=== PATIENT | female | born 1985 | race Caucasian/White ===

== ENCOUNTER 2018-06-07 17:13 | Inpatient (IN) | payer SELFPAY, BC, OTHER ==
[2018-06-07] MEDS: LACTATED RINGER'S 1,000 ML IV (18:10)
[2018-06-07] MEDS: ONDANSETRON 4 MG INJ IV (18:10)
[2018-06-07] MEDS: SOD CHLORIDE 0.9% 1,000 ML IV (18:10)
[2018-06-07 18:13] LABS: ABNORMAL IP MESSAGE 1; HEMATOCRIT 15.7 % (37.0-47.0); MEAN CORPUSCULAR HEMOGLOBIN 31.3 pg (29.0-33.0); MEAN CORPUSCULAR HGB CONC 33.1 g/dl (32.0-37.0); MEAN CORPUSCULAR VOLUME 94.6 fl (82.0-101.0); MEAN PLATELET VOLUME 11.8 fl (7.4-10.4); PLATELET COUNT 142 10^3/UL (140-415); RED BLOOD COUNT 1.66 10^6/ul (4.20-5.40); RED CELL DISTRIBUTION WIDTH 15.1 % (11.5-14.5)
[2018-06-07 18:25] LABS: ADD MAN DIFF? YES; HEMOGLOBIN 5.2 g/dl (12.0-16.0); POSITIVE DIFF @See below
[2018-06-07 18:32] LABS: ALANINE AMINOTRANSFERASE 53 IU/L (13-69); ALBUMIN/GLOBULIN RATIO 1.11; ALKALINE PHOSPHATASE 71 IU/L (42-121); ANION GAP 13 (8-16); ASPARTATE AMINO TRANSFERASE 81 IU/L (15-46); BILIRUBIN,INDIRECT 3.2 mg/dl (0-1.1); BILIRUBIN,TOTAL 3.2 mg/dl (0.2-1.3); BLOOD UREA NITROGEN 33 mg/dl (7-20); CALCIUM 8.8 mg/dl (8.4-10.2); CARBON DIOXIDE 24 mmol/L (21-31); CHLORIDE 99 mmol/L (97-110); CREATININE 0.63 mg/dl (0.44-1.00); GLUCOSE 192 mg/dl (70-220); LIPASE 173 U/L (23-300); POTASSIUM 3.9 mmol/L (3.5-5.1); SODIUM 132 mmol/L (135-144); TOTAL PROTEIN 5.7 g/dl (6.1-8.1)
[2018-06-07 18:35] LABS: ADD UMIC YES; UR ASCORBIC ACID 20 mg/dL (NEGATIVE); UR BACTERIA FEW /HPF (NONE SEEN); UR BILIRUBIN (Dip) NEGATIVE (NEGATIVE); UR BLOOD (Dip) NEGATIVE (NEGATIVE); UR CLARITY CLOUDY (CLEAR); UR COLOR AMBER (YELLOW); UR GLUCOSE (Dip) 1+ mg/dL (NEGATIVE); UR KETONES (Dip) NEGATIVE (NEGATIVE); UR LEUKOCYTE ESTERASE (Dip) TRACE Leu/ul (NEGATIVE); UR MUCUS MODERATE /HPF (NONE SEEN); UR NITRITE (Dip) NEGATIVE (NEGATIVE); UR RBC 2 /HPF (0-5); UR SPECIFIC GRAVITY (Dip) 1.021 (1.003-1.030); UR SQUAMOUS EPITHELIAL CELL MODERATE /HPF (FEW); UR TOTAL PROTEIN (Dip) NEGATIVE (NEGATIVE); UR UROBILINOGEN (Dip) 1+ mg/dL (NEGATIVE); UR WBC 3 /HPF (0-5)
[2018-06-07 18:59] LABS: BAND NEUTROPHILS #M 0.3 10^3/ul (0.0-0.6); BAND NEUTROPHILS % (M) 3 % (0-4); EOSINOPHILS % (M) 1 % (0-7); GIANT THROMBO% (M) 3 % (0-0); LYMPHOCYTES #M 2.1 10^3/ul (0.8-2.9); LYMPHOCYTES % (M) 18 % (15-51); MONOCYTE #M 0.3 10^3/ul (0.3-0.9); MONOCYTES % (M) 3 % (0-11); PLATELET ESTIMATE NORMAL; SEGMENTED NEUTROPHILS (M) % 75 % (39-77); SMUDGE%M 4 % (0-0)
[2018-06-07 19:35] LABS: RETICULOCYTE COUNT # 0.103 X10^6 (0.020-0.110)
[2018-06-07 19:35] LABS: RETICULOCYTE RBC 1.47
[2018-06-07 19:54] LABS: LACTATE DEHYDROGENASE 567 IU/L (313-618)
[2018-06-07 19:54] LABS: IRON 38 ug/dl (35-150)
[2018-06-07] MEDS: CEFTRIAXONE 1 GM/50 ML (PMX) 50 ML IVPB (20:00)
[2018-06-07 20:03] LABS: % IRON SATURATION 12 % SAT (22-52); TOTAL IRON BINDING CAPACITY 308 ug/dl (241-421)
[2018-06-07 20:06] LABS: HAAIG REFLEX REFLEX FILED
[2018-06-07] MEDS ORDERED: ONDANSETRON 4 MG INJ IV (20:30)
[2018-06-07] MEDS ORDERED: BISACODYL (EC) 5 MG TAB PO (20:30)
[2018-06-07] MEDS ORDERED: DOCUSATE SODIUM 100 MG CAP PO (20:30)
[2018-06-07] MEDS ORDERED: NACL 0.9% 3 ML SYG IV (20:30)
[2018-06-07] MEDS ORDERED: ACETAMINOPHEN 325 MG TAB PO (20:30)
[2018-06-07 20:31] LABS: FERRITIN 14.4 ng/ml (6.2-137.0)
[2018-06-07 20:47] LABS: HEPATITIS B SURFACE ANTIGEN NEGATIVE (NEGATIVE)
[2018-06-07 20:59] LABS: OCCULT BLOOD STOOL POSITIVE (NEGATIVE)
[2018-06-07 21:05] LABS: HEPATITIS B CORE ANTIBODY NEGATIVE (NEGATIVE); HEPATITIS C VIRAL ANTIBODY NEGATIVE (NEGATIVE)
[2018-06-07] MEDS ORDERED: CEFTRIAXONE 1 GM INJ IM (21:30)
[2018-06-07] MEDS ORDERED: METOCLOPRAMIDE 10 MG INJ IV (22:00)
[2018-06-07 22:14] LABS: FREE T4 (FREE THYROXINE) 1.35 ng/dl (0.79-2.35)
[2018-06-07 22:15] LABS: HEPATITIS B SURFACE ANTIBODY INDETERMINATE (NEGATIVE)
[2018-06-07 22:22] LABS: ETHANOL < 10.0 mg/dl
[2018-06-07 22:27] LABS: FREE T3 3.06 pg/ml (2.77-5.27); FREE THYROXINE INDEX (Calc) 3.08 ug/ml (0.65-3.89)
[2018-06-07 23:10] LABS: AMPHETAMINE/METHAMPHETAMINE Negative (NEGATIVE); BARBITURATES Negative (NEGATIVE); CANNABINOIDS Negative (NEGATIVE); COCAINE Negative (NEGATIVE); OPIATES Negative (NEGATIVE)
[2018-06-07 23:11] LABS: BENZODIAZEPINES Positive (NEGATIVE)
[2018-06-07 23:15] LABS: FOLATE 19.6 ng/ml (2.8-20.0); INR 1.93; PROTIME 22.5 Sec (11.9-14.9); PT RATIO 1.8
[2018-06-07 23:16] LABS: PARTIAL THROMBOPLASTIN TIME 36.8 Sec (25.0-35.0)
[2018-06-08] MEDS: SOD CHLORIDE 0.9% 250 ML IV (01:23)
[2018-06-08] MEDS: PANTOPRAZOLE IV 80 MG in SOD CHLORIDE 0.9% 100 ML IVPB (02:12)
[2018-06-08] MEDS: OCTREOTIDE 50 MCG in SOD CHLORIDE 0.9% 50 ML IVPB (02:12)
[2018-06-08] MEDS: OCTREOTIDE 1 MG in DEXTROSE 5% 95 ML IV ×2 (02:35→18:00)
[2018-06-08] MEDS: PANTOPRAZOLE IV 80 MG in SOD CHLORIDE 0.9% 100 ML IV ×4 (02:39→18:00)
[2018-06-08] MEDS: ZOLPIDEM 5 MG TAB PO ×2 (04:37→23:52)
[2018-06-08 06:00] LABS: ADD MAN DIFF? NO
[2018-06-08 06:23] LABS: WHITE BLOOD COUNT 8.4 10^3/ul (4.8-10.8)
[2018-06-08 06:23] LABS: ABNORMAL IP MESSAGE 1; BASOPHILS % 0.4 % (0.0-2.0); EOSINOPHILS # 0.3 10^3/ul (0.0-0.5); HEMATOCRIT 19.8 % (37.0-47.0); LYMPHOCYTES # 1.9 10^3/ul (0.8-2.9); LYMPHOCYTES % 22.2 % (15.0-51.0); MEAN CORPUSCULAR HEMOGLOBIN 29.4 pg (29.0-33.0); MEAN CORPUSCULAR HGB CONC 33.8 g/dl (32.0-37.0); MEAN CORPUSCULAR VOLUME 86.8 fl (82.0-101.0); MEAN PLATELET VOLUME 10.9 fl (7.4-10.4); MONOCYTE # 0.6 10^3/ul (0.3-0.9); MONOCYTES % 7.4 % (0.0-11.0); NEUTROPHIL # 5.6 10^3/ul (1.6-7.5); NEUTROPHILS % 66.4 % (39.0-77.0); PLATELET COUNT 76 10^3/UL (140-415); RED BLOOD COUNT 2.28 10^6/ul (4.20-5.40); RED CELL DISTRIBUTION WIDTH 15.2 % (11.5-14.5)
[2018-06-08 06:42] LABS: POSITIVE DIFF @See below
[2018-06-08 06:45] LABS: ALANINE AMINOTRANSFERASE 48 IU/L (13-69); ALBUMIN 2.6 g/dl (3.3-4.9); ALBUMIN/GLOBULIN RATIO 1.13; ALKALINE PHOSPHATASE 61 IU/L (42-121); ANION GAP 10 (8-16); ASPARTATE AMINO TRANSFERASE 62 IU/L (15-46); BILIRUBIN,INDIRECT 3.5 mg/dl (0-1.1); BILIRUBIN,TOTAL 3.6 mg/dl (0.2-1.3); BLOOD UREA NITROGEN 28 mg/dl (7-20); CARBON DIOXIDE 25 mmol/L (21-31); CHLORIDE 101 mmol/L (97-110); CREATININE 0.65 mg/dl (0.44-1.00); GLUCOSE 138 mg/dl (70-220); POTASSIUM 4.1 mmol/L (3.5-5.1); SODIUM 132 mmol/L (135-144); TOTAL PROTEIN 4.9 g/dl (6.1-8.1)
[2018-06-08 07:03] LABS: HEMOGLOBIN A1C 5.4 % (0-5.9)
[2018-06-08 07:25] LABS: CHOLESTEROL 223 mg/dl (100-200)
[2018-06-08 07:25] LABS: CHOL/HDL RATIO 2.7 RATIO; HDL CHOLESTEROL 80 mg/dl (34-82); LDL CHOLESTEROL,CALCULATED 128 mg/dl; TRIGLYCERIDES 73 mg/dl (0-149)
[2018-06-08] MEDS: MULTIVITAMINS 10 ML, THIAMINE 100 MG, FOLIC ACID 1 MG in SOD CHLORIDE 0.9% 1,000 ML IVPB (09:45)
[2018-06-08] MEDS: SOD CHLORIDE 0.9% 1,000 ML IV ×2 (11:30→21:53)
[2018-06-08 12:35] LABS: THYROID STIMULATING HORMONE 0.296 MIU/L (0.465-4.680)
[2018-06-08 14:54] LABS: ADD MAN DIFF? NO
[2018-06-08 15:23] LABS: ABNORMAL IP MESSAGE 1; BASOPHILS % 0.3 % (0.0-2.0); EOSINOPHILS # 0.2 10^3/ul (0.0-0.5); EOSINOPHILS % 2.8 % (0.0-7.0); HEMATOCRIT 19.5 % (37.0-47.0); LYMPHOCYTES # 1.6 10^3/ul (0.8-2.9); LYMPHOCYTES % 19.9 % (15.0-51.0); MEAN CORPUSCULAR HEMOGLOBIN 30.6 pg (29.0-33.0); MEAN CORPUSCULAR HGB CONC 34.4 g/dl (32.0-37.0); MEAN PLATELET VOLUME 11.6 fl (7.4-10.4); MONOCYTE # 0.6 10^3/ul (0.3-0.9); MONOCYTES % 7.5 % (0.0-11.0); NEUTROPHIL # 5.4 10^3/ul (1.6-7.5); PLATELET COUNT 86 10^3/UL (140-415); RED BLOOD COUNT 2.19 10^6/ul (4.20-5.40); RED CELL DISTRIBUTION WIDTH 16.3 % (11.5-14.5)
[2018-06-08 15:23] LABS: WHITE BLOOD COUNT 7.8 10^3/ul (4.8-10.8)
[2018-06-08 15:34] LABS: HEMOGLOBIN 6.7 g/dl (12.0-16.0); POSITIVE DIFF @See below
[2018-06-08] MEDS: METHYLPREDNISOLONE 40 MG INJ IV (15:48)
[2018-06-08] MEDS: BISACODYL (EC) 5 MG TAB PO (15:55)
[2018-06-08] MEDS: MAGNESIUM CITRATE 300 ML BTL PO (18:20)
[2018-06-08] MEDS: POLYETHYLENE GLYCOL 3350 119 GM POWDER PO (18:48)
[2018-06-08] MEDS: CEFTRIAXONE 1 GM/50 ML (PMX) 50 ML IVPB (20:37)
[2018-06-08 21:11] LABS: ADD MAN DIFF? NO
[2018-06-08 21:12] LABS: ABNORMAL IP MESSAGE 1; BASOPHILS % 0.2 % (0.0-2.0); EOSINOPHILS % 0.5 % (0.0-7.0); HEMATOCRIT 23.1 % (37.0-47.0); HEMOGLOBIN 7.9 g/dl (12.0-16.0); LYMPHOCYTES # 0.4 10^3/ul (0.8-2.9); LYMPHOCYTES % 7.8 % (15.0-51.0); MEAN CORPUSCULAR HEMOGLOBIN 30.6 pg (29.0-33.0); MEAN CORPUSCULAR HGB CONC 34.2 g/dl (32.0-37.0); MEAN CORPUSCULAR VOLUME 89.5 fl (82.0-101.0); MEAN PLATELET VOLUME 11.2 fl (7.4-10.4); MONOCYTE # 0.1 10^3/ul (0.3-0.9); MONOCYTES % 1.8 % (0.0-11.0); NEUTROPHILS % 89.2 % (39.0-77.0); PLATELET COUNT 81 10^3/UL (140-415); RED BLOOD COUNT 2.58 10^6/ul (4.20-5.40); RED CELL DISTRIBUTION WIDTH 15.9 % (11.5-14.5)
[2018-06-08 21:12] LABS: WHITE BLOOD COUNT 5.6 10^3/ul (4.8-10.8)
[2018-06-08 21:15] LABS: POSITIVE DIFF @See below
[2018-06-08 22:55] LABS: ADD MAN DIFF? NO
[2018-06-08 22:56] LABS: WHITE BLOOD COUNT 5.6 10^3/ul (4.8-10.8)
[2018-06-08 22:56] LABS: ABNORMAL IP MESSAGE 1; BASOPHILS % 0.2 % (0.0-2.0); EOSINOPHILS % 0.2 % (0.0-7.0); HEMATOCRIT 23.6 % (37.0-47.0); HEMOGLOBIN 8.1 g/dl (12.0-16.0); LYMPHOCYTES # 0.5 10^3/ul (0.8-2.9); LYMPHOCYTES % 9.2 % (15.0-51.0); MEAN CORPUSCULAR HEMOGLOBIN 29.9 pg (29.0-33.0); MEAN CORPUSCULAR HGB CONC 34.3 g/dl (32.0-37.0); MEAN CORPUSCULAR VOLUME 87.1 fl (82.0-101.0); MONOCYTE # 0.1 10^3/ul (0.3-0.9); MONOCYTES % 1.2 % (0.0-11.0); NEUTROPHILS % 88.7 % (39.0-77.0); PLATELET COUNT 81 10^3/UL (140-415); RED BLOOD COUNT 2.71 10^6/ul (4.20-5.40); RED CELL DISTRIBUTION WIDTH 15.9 % (11.5-14.5)
[2018-06-08 22:59] LABS: POSITIVE DIFF @See below
[2018-06-09] MEDS: OCTREOTIDE 1 MG in DEXTROSE 5% 95 ML IV ×2 (00:28→14:00)
[2018-06-09 00:31] LABS: IMMEDIATE SPIN CROSSMATCH 1
[2018-06-09] MEDS: PANTOPRAZOLE IV 80 MG in SOD CHLORIDE 0.9% 100 ML IV ×2 (04:19→14:00)
[2018-06-09 05:52] LABS: ADD MAN DIFF? NO
[2018-06-09] MEDS: POLYETHYLENE GLYCOL 3350 119 GM POWDER PO (05:55)
[2018-06-09 06:01] LABS: WHITE BLOOD COUNT 5.6 10^3/ul (4.8-10.8)
[2018-06-09 06:01] LABS: ABNORMAL IP MESSAGE 1; BASOPHILS % 0.2 % (0.0-2.0); HEMATOCRIT 27.1 % (37.0-47.0); HEMOGLOBIN 9.3 g/dl (12.0-16.0); LYMPHOCYTES # 0.5 10^3/ul (0.8-2.9); LYMPHOCYTES % 9.2 % (15.0-51.0); MEAN CORPUSCULAR HEMOGLOBIN 29.6 pg (29.0-33.0); MEAN CORPUSCULAR HGB CONC 34.3 g/dl (32.0-37.0); MEAN CORPUSCULAR VOLUME 86.3 fl (82.0-101.0); MEAN PLATELET VOLUME 11.3 fl (7.4-10.4); MONOCYTE # 0.1 10^3/ul (0.3-0.9); MONOCYTES % 1.8 % (0.0-11.0); NEUTROPHIL # 4.9 10^3/ul (1.6-7.5); NEUTROPHILS % 88.3 % (39.0-77.0); PLATELET COUNT 78 10^3/UL (140-415); RED BLOOD COUNT 3.14 10^6/ul (4.20-5.40); RED CELL DISTRIBUTION WIDTH 15.2 % (11.5-14.5)
[2018-06-09 06:07] LABS: POSITIVE DIFF @See below
[2018-06-09 06:22] LABS: INR 1.42; PROTIME 17.6 Sec (11.9-14.9); PT RATIO 1.4
[2018-06-09 06:36] LABS: AMMONIA 36 umol/l (9-30)
[2018-06-09 06:52] LABS: PHOSPHORUS 4.1 mg/dl (2.5-4.9)
[2018-06-09 06:58] LABS: ALANINE AMINOTRANSFERASE 43 IU/L (13-69); ALBUMIN 2.7 g/dl (3.3-4.9); ALBUMIN/GLOBULIN RATIO 1.03; ALKALINE PHOSPHATASE 55 IU/L (42-121); ANION GAP 9 (8-16); ASPARTATE AMINO TRANSFERASE 49 IU/L (15-46); BILIRUBIN,INDIRECT 2.5 mg/dl (0-1.1); BILIRUBIN,TOTAL 2.5 mg/dl (0.2-1.3); BLOOD UREA NITROGEN 15 mg/dl (7-20); CALCIUM 7.9 mg/dl (8.4-10.2); CARBON DIOXIDE 24 mmol/L (21-31); CHLORIDE 108 mmol/L (97-110); CREATININE 0.55 mg/dl (0.44-1.00); GLUCOSE 134 mg/dl (70-220); POTASSIUM 4.1 mmol/L (3.5-5.1); SODIUM 137 mmol/L (135-144); TOTAL PROTEIN 5.3 g/dl (6.1-8.1)
[2018-06-09 08:00] LABS: IMMEDIATE SPIN CROSSMATCH 1 4
[2018-06-09 08:12] LABS: MAGNESIUM 2.2 mg/dl (1.7-2.5)
[2018-06-09 08:21] LABS: HEMOGLOBIN 6.7 g/dl (12.0-16.0)
[2018-06-09] MEDS: BISACODYL (EC) 5 MG TAB PO (08:29)
[2018-06-09] MEDS: SOD CHLORIDE 0.9% 1,000 ML IV (08:30)
[2018-06-09] MEDS: METHYLPREDNISOLONE 40 MG INJ IV (08:31)
[2018-06-09] MEDS: LORAZEPAM 2 MG INJ IV ×2 (08:40→23:57)
[2018-06-09 08:43] LABS: ADD MAN DIFF? NO
[2018-06-09 08:51] LABS: ABNORMAL IP MESSAGE 1; HEMATOCRIT 26.4 % (37.0-47.0); LYMPHOCYTES # 0.6 10^3/ul (0.8-2.9); LYMPHOCYTES % 9.8 % (15.0-51.0); MEAN CORPUSCULAR HGB CONC 34.1 g/dl (32.0-37.0); MEAN PLATELET VOLUME 11.2 fl (7.4-10.4); MONOCYTE # 0.2 10^3/ul (0.3-0.9); NEUTROPHIL # 5.2 10^3/ul (1.6-7.5); NEUTROPHILS % 86.5 % (39.0-77.0); RED CELL DISTRIBUTION WIDTH 15.6 % (11.5-14.5)
[2018-06-09 08:51] LABS: WHITE BLOOD COUNT 6.1 10^3/ul (4.8-10.8)
[2018-06-09 08:52] LABS: POSITIVE DIFF @See below
[2018-06-09 08:53] LABS: PLATELET COUNT 81 10^3/UL (140-415)
[2018-06-09 13:24] LABS: THYROID STIMULATING HORMONE 0.095 MIU/L (0.465-4.680)
[2018-06-09 13:34] LABS: FREE T4 (FREE THYROXINE) 1.07 ng/dl (0.79-2.35)
[2018-06-09] MEDS ORDERED: PROPOFOL 60 ML (13:40)
[2018-06-09] MEDS: MULTIVITAMINS 10 ML, THIAMINE 100 MG, FOLIC ACID 1 MG in SOD CHLORIDE 0.9% 1,000 ML IVPB (15:29)
[2018-06-09] MEDS: SUCRALFATE (100 MG/ML) 10ML CUP PO ×2 (17:31→21:46)
[2018-06-09] MEDS: PANTOPRAZOLE (EC) 40 MG TAB PO (17:31)
[2018-06-09] MEDS: ZOLPIDEM 5 MG TAB PO (21:53)
[2018-06-10] MEDS: SOD CHLORIDE 0.9% 1,000 ML IV ×2 (01:16→03:30)
[2018-06-10 05:52] LABS: ADD MAN DIFF? NO
[2018-06-10 05:59] LABS: ABNORMAL IP MESSAGE 1; BASOPHILS % 0.1 % (0.0-2.0); EOSINOPHILS % 0.1 % (0.0-7.0); HEMATOCRIT 27.5 % (37.0-47.0); HEMOGLOBIN 9.1 g/dl (12.0-16.0); LYMPHOCYTES # 0.9 10^3/ul (0.8-2.9); LYMPHOCYTES % 13.4 % (15.0-51.0); MEAN CORPUSCULAR HGB CONC 33.1 g/dl (32.0-37.0); MEAN CORPUSCULAR VOLUME 90.8 fl (82.0-101.0); MEAN PLATELET VOLUME 10.5 fl (7.4-10.4); MONOCYTE # 0.5 10^3/ul (0.3-0.9); MONOCYTES % 6.7 % (0.0-11.0); NEUTROPHIL # 5.3 10^3/ul (1.6-7.5); NEUTROPHILS % 79.3 % (39.0-77.0); PLATELET COUNT 83 10^3/UL (140-415); RED BLOOD COUNT 3.03 10^6/ul (4.20-5.40); RED CELL DISTRIBUTION WIDTH 17.1 % (11.5-14.5)
[2018-06-10 05:59] LABS: WHITE BLOOD COUNT 6.7 10^3/ul (4.8-10.8)
[2018-06-10 06:12] LABS: POSITIVE DIFF @See below
[2018-06-10] MEDS: PANTOPRAZOLE (EC) 40 MG TAB PO (06:16)
[2018-06-10 06:19] LABS: MAGNESIUM 2.1 mg/dl (1.7-2.5)
[2018-06-10 06:41] LABS: ALANINE AMINOTRANSFERASE 34 IU/L (13-69); ALBUMIN 3.4 g/dl (3.3-4.9); ALBUMIN/GLOBULIN RATIO 1.21; ALKALINE PHOSPHATASE 98 IU/L (42-121); ANION GAP 10 (8-16); ASPARTATE AMINO TRANSFERASE 37 IU/L (15-46); BLOOD UREA NITROGEN 13 mg/dl (7-20); CALCIUM 8.2 mg/dl (8.4-10.2); CARBON DIOXIDE 24 mmol/L (21-31); CHLORIDE 109 mmol/L (97-110); CREATININE 0.66 mg/dl (0.44-1.00); GLUCOSE 108 mg/dl (70-220); POTASSIUM 3.9 mmol/L (3.5-5.1); SODIUM 139 mmol/L (135-144); TOTAL PROTEIN 6.2 g/dl (6.1-8.1)
[2018-06-10] MEDS ORDERED: PROPOFOL 200 MG INJ (07:00)
[2018-06-10] MEDS ORDERED: LIDOCAINE 2% (SDV) 5 ML INJ (07:00)
[2018-06-10] MEDS: METHYLPREDNISOLONE 40 MG INJ IV (09:24)
[2018-06-10] MEDS: SUCRALFATE (100 MG/ML) 10ML CUP PO (09:24)
[2018-06-10] MEDS: MULTIVITAMINS 10 ML, THIAMINE 100 MG, FOLIC ACID 1 MG in SOD CHLORIDE 0.9% 1,000 ML IVPB (09:25)
[2018-06-10] MEDS: PROPRANOLOL 10 MG TAB PO (10:54)
[2018-06-14 14:06] LABS: ANA SCREEN NEGATIVE (NEGATIVE); HAPTOGLOBIN 38 mg/dL (43-212); HOMOCYSTEINE - CARDIOVASCULAR 4.2 umol/L (<10.4); TRANSFERRIN 255 mg/dL (188-341)
[2018-06-14 14:07] LABS: ERYTHROPOIETIN 252.4 mIU/mL (2.6-18.5)
== END 2018-06-10 13:05 | disposition home or self-care (01) | DRG 378 ==
LOC: E/R 17:13 → 6WM 19:36
PROC: 0DJ08ZZ Inspection of Upper Intestinal Tract, Via Natural or Artificial Opening Endoscopic (ICD-10-PCS; principal; 2018-06-09 13:00)
PROC: 0DJD8ZZ Inspection of Lower Intestinal Tract, Via Natural or Artificial Opening Endoscopic (ICD-10-PCS; 2018-06-09 13:00)
PROC: 30233N1 Transfusion of Nonautologous Red Blood Cells into Peripheral Vein, Percutaneous Approach (ICD-10-PCS; 2018-06-09 13:00)
PROC: 30233K1 Transfusion of Nonautologous Frozen Plasma into Peripheral Vein, Percutaneous Approach (ICD-10-PCS; 2018-06-09 13:00)
DX: K92.2 Gastrointestinal hemorrhage, unspecified (principal); D62 Acute posthemorrhagic anemia; N39.0 Urinary tract infection, site not specified; E87.1 Hypo-osmolality and hyponatremia; D68.9 Coagulation defect, unspecified; F10.20 Alcohol dependence, uncomplicated; K70.30 Alcoholic cirrhosis of liver without ascites; I85.10 Secondary esophageal varices without bleeding; D69.59 Other secondary thrombocytopenia; E78.5 Hyperlipidemia, unspecified; K70.10 Alcoholic hepatitis without ascites; D69.6 Thrombocytopenia, unspecified; G62.9 Polyneuropathy, unspecified; K57.30 Diverticulosis of large intestine without perforation or abscess without bleeding; K25.9 Gastric ulcer, unspecified as acute or chronic, without hemorrhage or perforation
CPT/HCPCS: 36415; 36430; 71045; 74176; 74181; 76705; 80053; 80061; 80307; 81001; 81025; 82140; 82270; 82607; 82668; 82728; 82746; 83010; 83036; 83090; 83540; 83605; 83615; 83690; 83735; 84100; 84436; 84439; 84443; 84466; 84479; 84481; 84484; 85025; 85045; 85384; 85610; 85730; 86038; 86704; 86706; 86708; 86709; 86803; 86850; 86880; 86885; 86900; 86901; 86920; 87086; 87340; 93005; 96374; 99291-25

== ENCOUNTER 2018-06-14 12:10 | Emergency (ER) | payer BC ==
[2018-06-14 12:47] LABS: ADD MAN DIFF? NO
[2018-06-14] MEDS: FUROSEMIDE 40 MG INJ IV (12:50)
[2018-06-14] MEDS: FUROSEMIDE 20 MG INJ IV (12:54)
[2018-06-14 13:12] LABS: BASOPHILS % 0.3 % (0.0-2.0); EOSINOPHILS # 0.2 10^3/ul (0.0-0.5); EOSINOPHILS % 2.8 % (0.0-7.0); IMMATURE GRANS #M 0.02 10^3/ul; IMMATURE GRANS % (M) 0.3 %; LYMPHOCYTES # 1.4 10^3/ul (0.8-2.9); LYMPHOCYTES % 21.5 % (15.0-51.0); MEAN CORPUSCULAR HEMOGLOBIN 30.6 pg (29.0-33.0); MEAN CORPUSCULAR HGB CONC 33.3 g/dl (32.0-37.0); MEAN CORPUSCULAR VOLUME 91.8 fl (82.0-101.0); MEAN PLATELET VOLUME 11.8 fl (7.4-10.4); MONOCYTE # 0.7 10^3/ul (0.3-0.9); NEUTROPHIL # 4.3 10^3/ul (1.6-7.5); NEUTROPHILS % 64.1 % (39.0-77.0); PLATELET COUNT 138 10^3/UL (140-415); RED BLOOD COUNT 2.94 10^6/ul (4.20-5.40); RED CELL DISTRIBUTION WIDTH 16.4 % (11.5-14.5)
[2018-06-14 13:12] LABS: WHITE BLOOD COUNT 6.7 10^3/ul (4.8-10.8)
[2018-06-14 13:15] LABS: ANION GAP 10 (8-16); BLOOD UREA NITROGEN 13 mg/dl (7-20); CALCIUM 8.4 mg/dl (8.4-10.2); CARBON DIOXIDE 26 mmol/L (21-31); CHLORIDE 108 mmol/L (97-110); CREATININE 0.56 mg/dl (0.44-1.00); GLUCOSE 112 mg/dl (70-220); POTASSIUM 4.2 mmol/L (3.5-5.1); PROTIME 15.4 Sec (11.9-14.9); PT RATIO 1.2; SODIUM 140 mmol/L (135-144)
[2018-06-14 13:16] LABS: PARTIAL THROMBOPLASTIN TIME 24.2 Sec (25.0-35.0)
[2018-06-14 13:27] LABS: TROPONIN-I 0.038 ng/ml (0.000-0.120)
[2018-06-14 13:35] LABS: ADD UMIC NO; UR ASCORBIC ACID NEGATIVE (NEGATIVE); UR BILIRUBIN (Dip) NEGATIVE (NEGATIVE); UR BLOOD (Dip) NEGATIVE (NEGATIVE); UR CLARITY CLEAR (CLEAR); UR COLOR STRAW (YELLOW); UR GLUCOSE (Dip) NEGATIVE (NEGATIVE); UR KETONES (Dip) NEGATIVE (NEGATIVE); UR LEUKOCYTE ESTERASE (Dip) NEGATIVE Leu/ul (NEGATIVE); UR NITRITE (Dip) NEGATIVE (NEGATIVE); UR SPECIFIC GRAVITY (Dip) 1.006 (1.003-1.030); UR TOTAL PROTEIN (Dip) NEGATIVE (NEGATIVE); UR UROBILINOGEN (Dip) NEGATIVE (NEGATIVE)
== END 2018-06-14 15:27 | disposition home or self-care (01) ==
LOC: E/R 12:10
DX: M79.89 Other specified soft tissue disorders (principal); R40.2252 Coma scale, best verbal response, oriented, at arrival to emergency department; D64.9 Anemia, unspecified; R40.2142 Coma scale, eyes open, spontaneous, at arrival to emergency department; R40.2362 Coma scale, best motor response, obeys commands, at arrival to emergency department; R07.9 Chest pain, unspecified
CPT/HCPCS: 36415; 71045; 80048; 84484; 84703; 85025; 85610; 85730; 86850; 86900; 86901; 93005; 96374; 99285-25

== ENCOUNTER 2018-07-13 07:58 | Emergency (ER) | payer BC ==
[2018-07-13 09:09] LABS: ADD MAN DIFF? NO
[2018-07-13] MEDS: SOD CHLORIDE 0.9% 1,000 ML IV ×2 (09:10→12:31)
[2018-07-13] MEDS: LORAZEPAM 2 MG INJ IM ×2 (09:11→12:25)
[2018-07-13 09:13] LABS: BASOPHILS % 0.8 % (0.0-2.0); EOSINOPHILS # 0.1 10^3/ul (0.0-0.5); EOSINOPHILS % 2.1 % (0.0-7.0); HEMOGLOBIN 9.6 g/dl (12.0-16.0); LYMPHOCYTES # 1.4 10^3/ul (0.8-2.9); LYMPHOCYTES % 28.9 % (15.0-51.0); MEAN CORPUSCULAR HEMOGLOBIN 25.7 pg (29.0-33.0); MEAN CORPUSCULAR VOLUME 80.2 fl (82.0-101.0); MEAN PLATELET VOLUME 9.9 fl (7.4-10.4); MONOCYTE # 0.4 10^3/ul (0.3-0.9); MONOCYTES % 7.4 % (0.0-11.0); NEUTROPHIL # 2.9 10^3/ul (1.6-7.5); NEUTROPHILS % 60.2 % (39.0-77.0); PLATELET COUNT 100 10^3/UL (140-415); RED BLOOD COUNT 3.74 10^6/ul (4.20-5.40); RED CELL DISTRIBUTION WIDTH 17.2 % (11.5-14.5)
[2018-07-13 09:13] LABS: WHITE BLOOD COUNT 4.7 10^3/ul (4.8-10.8)
[2018-07-13 09:33] LABS: ALANINE AMINOTRANSFERASE 55 IU/L (13-69); ALBUMIN 4.2 g/dl (3.3-4.9); ALKALINE PHOSPHATASE 130 IU/L (42-121); ANION GAP 16 (8-16); ASPARTATE AMINO TRANSFERASE 128 IU/L (15-46); BLOOD UREA NITROGEN 9 mg/dl (7-20); CALCIUM 9.1 mg/dl (8.4-10.2); CARBON DIOXIDE 28 mmol/L (21-31); CHLORIDE 105 mmol/L (97-110); CREATININE 0.45 mg/dl (0.44-1.00); GLUCOSE 110 mg/dl (70-220); POTASSIUM 3.6 mmol/L (3.5-5.1); SODIUM 145 mmol/L (135-144); TOTAL PROTEIN 7.7 g/dl (6.1-8.1)
[2018-07-13 09:34] LABS: INR 1.22; PROTIME 15.6 Sec (11.9-14.9); PT RATIO 1.2
== END 2018-07-13 12:57 | disposition home or self-care (01) ==
LOC: E/R 07:58
DX: F10.230 Alcohol dependence with withdrawal, uncomplicated (principal); R25.1 Tremor, unspecified; R00.0 Tachycardia, unspecified; F41.9 Anxiety disorder, unspecified; D50.9 Iron deficiency anemia, unspecified; D69.6 Thrombocytopenia, unspecified; K70.9 Alcoholic liver disease, unspecified; R74.0 Nonspecific elevation of levels of transaminase and lactic acid dehydrogenase [LDH]; E80.6 Other disorders of bilirubin metabolism; K83.1 Obstruction of bile duct
CPT/HCPCS: 36415; 71045; 80053; 80307; 85025; 85610; 93005; 96372; 99285-25